=== PATIENT | female | born 2000 | race Native Hawaiian/Other Pacific Islander ===

== ENCOUNTER 2021-11-24 11:55 | Emergency (ER) | payer SELFPAY ==
[2021-11-24 12:07] VITALS: BP 145/114
[2021-11-24 12:40] LABS: BILIRUBIN,URINE NEGATIVE (NEGATIVE); GLUCOSE, URINE (UA) NEGATIVE (NEGATIVE); KETONES,URINE (UA) NEGATIVE (NEGATIVE); LEUKOCYTE ESTERASE, URINE NEGATIVE (NEGATIVE); NITRITE,URINE NEGATIVE (NEGATIVE); OCCULT BLOOD,URINE SMALL (NEGATIVE); PROTEIN,URINE NEGATIVE (NEGATIVE); UROBILINOGEN,URINE 0.2 (NORMAL) E.U./dL (NORMAL)
[2021-11-24 12:43] LABS: CLARITY,URINE CLEAR (CLEAR)
[2021-11-24 12:49] LABS: BACTERIA,URINE Few /HPF (None Seen); RBC,URINE 0-5 /HPF (0-5); SQUAMOUS EPITHELIAL CELL,UR FEW Squamous (<= Few); WBC,URINE 0-3 /HPF (0-5)
[2021-11-24] MEDS ORDERED: AZITHROMYCIN 250 MG TABLET PO STA (12:58)
[2021-11-24] MEDS ORDERED: cefTRIAXone 500 MG VIAL IM STA (12:58)
[2021-11-24] MEDS ORDERED: LIDOCAINE 1% 2 ML VIAL MC ONE (12:58)
--- NOTE | 2021-11-24 13:01 | ED Physician Documentation ---
History of Present Illness - Stated complaint Stated Complaint: FEMALE - Chief complaint Chief Complaint: General - Additonal information Additional information: 21-year-old female presents emergency department requesting evaluation for s exually transmitted infection. She has had a new sexual partner over the last month. She reports that he told her yesterday that he was having some penile and testicular pain. She is concerned that he could have chlamydia. She has no previous history of STI. She denies dyspareunia vaginal bleeding or discharge. Review of Systems Constitutional: denies: Fever, Chills Nose: reports: Reviewed and negative Throat: reports: Reviewed and negative Cardiac: reports: Reviewed and negative Respiratory: reports: Reviewed and negative GI: reports: Reviewed and negative : reports: Reviewed and negative Skin: reports: Reviewed and negative Musculoskeletal: reports: Reviewed and negative PD PAST MEDICAL HISTORY - Past Medical History Past Medical History: No - Allergies Allergies/Adverse Reactions: Allergies Allergy/AdvReac Type Severity Reaction Status Date / Time No Known Drug Allergies Allergy Verified 11/24/21 12:06 - Social History Does the pt smoke?: No Smoking Status: Never smoker - POLST Patient has POLST: No PD ED PE NORMAL - General General: Alert and oriented X 3, No acute distress - HEENT HEENT: PERRL - Cardiac Cardiac: RRR, No murmur - Respiratory Respiratory: Clear bilaterally - Abdomen Abdomen: Normal bowel sounds, Soft, Non tender, Non distended - Derm Derm: Warm and dry - Extremities Extremities: No deformity - Neuro Neuro: Alert and oriented X 3 Eye Opening: Spontaneous Motor: Obeys Commands Verbal: Oriented GCS Score: 15 Results - Vitals Vitals: Vital Signs - 24 hr 11/24/21 12:04 Temperature 36.1 C L Heart Rate 88 Respiratory 16 Rate Blood Pressure 145/114 H O2 Saturation 100 Oxygen O2 Source Room air - Labs Labs: Laboratory Tests 11/24/21 12:33 Urine Color YELLOW Urine Clarity CLEAR Urine pH 6.0 Ur Specific [place] 1.025 Urine Protein NEGATIVE Urine Glucose (UA) NEGATIVE Urine Ketones NEGATIVE Urine Occult Blood SMALL H Urine Nitrite NEGATIVE Urine Bilirubin NEGATIVE Urine Urobilinogen 0.2 (NORMAL) Ur Leukocyte Esterase NEGATIVE Urine RBC 0-5 Urine WBC 0-3 Ur Squamous Epith Cells FEW Squamous Urine Bacteria Few Ur Microscopic Review INDICATED Urine Culture Comments NOT INDICATED PD MEDICAL DECISION MAKING - ED course Complexity details: reviewed results, re-evaluated patient, considered differential, d/w patient ED course: 21-year-old female presents emergency department requesting evaluation and treatment for possible sexually transmitted infection. Her recent partner reports to her that he has penile pain and testicular pain he has yet to get evaluated or treatment. We discussed the possibility of empiric treatment versus waiting for laboratory testing and she elects empiric treatment today thus ceftriaxone azithromycin was ordered. She is encouraged to use condoms during any sexual intercourse and to wait at least 2 weeks after both she and her partner have been tested and treated. More extensive STI testing is available through [facility] or her primary care provider and this was also discussed. GC and trichomoniasis are pending via urine. Departure - Departure Disposition: 01 Home, Self Care Clinical Impression: Screen for STD (sexually transmitted disease) Condition: Stable Record reviewed to determine appropriate education?: Yes Instructions: STDs Comments: Mer you are seen today in the emergency department because you have concerned that your new partner may have a sexually transmitted infection. You have elected to be empirically treated with an antibiotic called ceftriaxone as well as an antibiotic called azithromycin. These to put together are typically adequate treatment for exposure to chlamydia and gonorrhea or active infection. We are screening your urine for these STDs. However full STD testing such as syphilis, herpes or HIV is available through [facility] or your primary care provider. It is important that your partner be both tested and treated and you both abstain from sexual intercourse for at least 2 weeks after treatment. Always use a condom. If you have any concerns that you develop a sexually transmitted infection, have pain during intercourse or vaginal discharge do not hesitate to return to the ER for a second evaluation.
[2021-11-24 21:07] LABS: CHLAMYDIA TRACHOMATIS DNA NEGATIVE (NEGATIVE); NEISSERIA GONORRHOEAE DNA NEGATIVE (NEGATIVE)
[2021-11-24 21:10] LABS: TRICHOMONAS VAGINALIS DNA POSITIVE (NEGATIVE)
== END 2021-11-24 13:36 | disposition home or self-care (01) ==
LOC: ED 11:55
DX: Z11.3 Encounter for screening for infections with a predominantly sexual mode of transmission (principal)
CPT/HCPCS: 81001; 87491; 87591; 87661; 99282; 99283; A9270; 81003; 87086

== ENCOUNTER 2024-07-10 08:38 | Observation (INO) ==
[2024-07-10] MEDS ORDERED: NALOXONE 0.4 MG/ML VIAL IVP PRN (09:08)
[2024-07-10] MEDS ORDERED: LABETALOL 5 MG/1 ML 20 ML MDV IVP PRN (09:08)
[2024-07-10] MEDS ORDERED: NIFEdipine 10 MG CAPSULE PO PRN (09:08)
[2024-07-10] MEDS ORDERED: OXYTOCIN/SODIUM CHLORIDE 500 ML IV PRN (09:08)
[2024-07-10] MEDS ORDERED: LABETALOL 20 MG/4 ML SYRINGE IVP PRN ×2 (09:08)
[2024-07-10] MEDS ORDERED: hydrALAZINE INJ 20 MG/ML VIAL IVP PRN ×2 (09:08)
[2024-07-10] MEDS ORDERED: SIMETHICONE CHEW 80 MG TABLET PO PRN (09:08)
--- NOTE | 2024-07-10 09:08 | HISTORY & PHYSICAL EXAMINATION ---
Admit History Smoking Status: Never smoker Meds/Allgy Allergies Allergies Allergy/AdvReac Type Severity Reaction Status Date / Time No Known Drug Allergies Allergy Verified 11/24/21 12:06 [facility] Social History Social History Smoking Status: Never smoker Do you vape?: No POLST Patient has POLST: No Plan for Labor Plan For Labor I expect patient to be DC'd or transferred within 96 hours.: Yes Conclusion/Plan Problem List (1) Delivery outcome of liveborn infant: Plan: Admit to L&D for observation. Will get labs for her and baby sake. Asked for consent for drug screen. Uterus is firm and below the umbilicus. Bleeding is normal. Anticipate routine care Qualifiers: Number of infants delivered: single infant Qualified Code(s): Z37.0 - Single live (2) care insufficient: Plan: Labs as above. Qualifiers: Trimester: unspecified trimester Qualified Code(s): O09.30 - Supervision of with insufficient care, unspecified trimester Lab Results 07/10/24 09:32 HPI Details: HPI: Patient is a 24-year-old G1, P1 who presented today after delivery of a at home in the bathtub. She says she did not know she was . Started having some cramping last night then was googling things difficult to take care of baby. After delivery, she did pass the placenta was brought in a bag. They cut the umbilical cord prior to come to the hospital. She has light bleeding, but steady. No dizziness, lightheadedness, weakness. All other symptoms reviewed and were negative except per HPI. Course Unknown PMH Denies pertinent history PSH Rods in her left hip OB History G1, P1 SH Denies tobacco, alcohol, drug drugs Family History No known family history Allergies No known drug allergies Medications None Physical exam: General: Alert, oriented, no apparent distress. Cardiovascular: Regular rate. Regular rhythm. Lungs: No increased work of breathing. Abdomen: Uterus firm. Below umbilicus. No guarding or rebound. Extremities: No pain on palpation. No cords palpated. Distal pulses intact. : Mild bleeding. Perineum intact, has hymenal stretching with blood clots but no active bleeding.
[2024-07-10 09:51] LABS: BASOPHILS % (AUTO) 0.1 %; HCT - HEMATOCRIT 34.5 % (37.0-47.0); HGB - HEMOGLOBIN 11.1 g/dL (12.0-16.0); LYMPHOCYTES # (AUTO) 1.1 10^3/uL (1.5-3.5); LYMPHOCYTES % (AUTO) 3.8 %; MEAN CORPUSCULAR HEMOGLOBIN 26.6 pg (27.0-31.0); MEAN CORPUSCULAR HGB CONC 32.2 g/dL (32.0-36.0); MEAN CORPUSCULAR VOLUME 82.5 fL (81.0-99.0); MEAN PLATELET VOLUME 8.8 fL (7.9-10.8); MONOCYTES # (AUTO) 1.2 10^3/uL (0.0-1.0); MONOCYTES % (AUTO) 4.2 %; NEUTROPHILS # (AUTO) 25.3 10^3/uL (1.5-6.6); NEUTROPHILS % (AUTO) 91.4 %; PLT - PLATELET COUNT 299 10^3/uL (130-450); RED BLOOD COUNT 4.18 10^6/uL (4.20-5.40); RED CELL DISTRIBUTION WIDTH 13.4 % (12.0-15.0); WHITE BLOOD COUNT 27.7 x10^3/uL (4.8-10.8)
[2024-07-10 09:55] LABS: SLIDE REVIEW? Indicated
[2024-07-10 10:39] LABS: PLATELET ESTIMATE, MANUAL NORMAL (130-450,000) (NORMAL); PLATELET MORPHOLOGY NORMAL APPEARANCE (NORMAL); RBC MORPHOLOGY (MULTIPLE) NORMAL APPEARANCE (NORMAL)
--- NOTE | 2024-07-10 11:23 | PHARMACY PROGRESS NOTE ---
Best Possible Medication History Admit Date and Time: 07/10/24 0908 Home Medications Medication Instructions Recorded Confirmed Type acetaminophen 500 mg tablet 500 mg PO Q4H PRN pain 07/10/24 07/10/24 History ibuprofen 200 mg tablet (Advil) 200 mg PO Q8H PRN pain 07/10/24 07/10/24 History Processed by: Pharmacy (Medication reconciliation completed by pharmacy laboratory technicianFederica) Medications reviewed in ED?: No Medication History completed: Yes Patient Interview: Completed Secondary Source(s): Insurance records [facility] Statement: As the person ultimately responsible for medication therapy, providers are able to order a medication from an existing home medication list in [facility] via the "Reconcile Routine" prior to Confirmation of that medication by care support representative. Such practice is discouraged except when the physician, in their clinical judgment, deems that a medical need exists for a medication without regard to previous use.
[2024-07-10] MEDS: IBUPROFEN 600 MG TABLET PO PRN (11:50)
[2024-07-10] MEDS: ACETAMINOPHEN 500 MG TABLET PO PRN (11:50)
[2024-07-10 12:34] LABS: AMPHETAMINE SCREEN,URINE POSITIVE (NEGATIVE); BARBITURATE SCREEN,UR NEGATIVE (NEGATIVE); BENZODIAZEPINES SCREEN, URINE NEGATIVE (NEGATIVE); BUPRENORPHINE SCREEN, URINE NEGATIVE (NEGATIVE); COCAINE SCREEN URINE NEGATIVE (NEGATIVE); METHADONE SCREEN, URINE NEGATIVE (NEGATIVE); METHAMPHETAMINES SCREEN, URINE POSITIVE (NEGATIVE); OPIATE SCREEN, URINE NEGATIVE (NEGATIVE); OXYCODONE SCREEN, URINE NEGATIVE (NEGATIVE); THC CANNABINOID SCREEN, URINE POSITIVE (NEGATIVE); TRICYCLIC ANTIDEPRESSANT,URINE NEGATIVE (NEGATIVE)
[2024-07-10 19:13] LABS: CHLAMYDIA TRACHOMATIS DNA NEGATIVE (NEGATIVE); NEISSERIA GONORRHOEAE DNA NEGATIVE (NEGATIVE); TRICHOMONAS VAGINALIS DNA NEGATIVE (NEGATIVE)
--- NOTE | 2024-07-10 23:21 | PROVIDER PROGRESS NOTE ---
Current Medications Current Medications Current Medications: Current Medications Generic Name Dose Route Start Last Admin Trade Name Freq PRN Reason Stop Dose Admin Acetaminophen 1,000 mg 07/10/24 09:08 07/10/24 22:14 Acetaminophen 500 Mg Tablet PO 1,000 mg Q8HR PRN Administration Mild Pain or Fever>38C(100.4F) Docusate Sodium 100 mg 07/10/24 21:00 Docusate Sodium 100 Mg Capsule PO BID [facility] Hydralazine HCl 10 mg 07/10/24 09:08 Hydralazine Inj 20 Mg/Ml Vial IVP .ONCE PRN SBP> or= 160 OR DBP> or= 110 Protocol Hydralazine HCl 5 - 10 mg 07/10/24 09:08 Hydralazine Inj 20 Mg/Ml Vial IVP Q20M PRN SBP >=160 and/or DBP >=110 Protocol Oxytocin/Sodium Chloride 500 mls @ 999 mls/hr 07/10/24 09:08 Pitocin/Sodium Chloride IV PRN PRN POST- HEMORR PREVENTION Protocol 999 MILLIUNIT/MIN Ibuprofen 600 mg 07/10/24 09:08 07/10/24 22:14 Ibuprofen 600 Mg Tablet PO 600 mg Q6HR PRN Administration Moderate Pain (Level 4-6) Labetalol HCl 20 - 80 mg 07/10/24 09:08 Labetalol 5 Mg/1 Ml 20 Ml Mdv IVP Q10M PRN SBP> or= 160 OR DBP> or= 110 Protocol Labetalol HCl 20 - 40 mg 07/10/24 09:08 Labetalol 20 Mg/4 Ml Syringe IVP Q10M PRN SBP> or= 160 OR DBP> or= 110 Protocol Labetalol HCl 20 mg 07/10/24 09:08 Labetalol 20 Mg/4 Ml Syringe IVP .ONCE PRN SBP >=160 and/or DBP >=110 Protocol Naloxone HCl 0.4 mg 07/10/24 09:08 Naloxone 0.4 Mg/Ml Vial IVP .ONCE PRN Opioid Overdose Nifedipine 10 - 20 mg 07/10/24 09:08 Nifedipine 10 Mg Capsule PO Q20M PRN SBP >=160 and/or DBP >=110 Protocol Simethicone 80 mg 07/10/24 09:08 Simethicone Chew 80 Mg Tablet PO TID PRN Gas Objective Vital Signs/Intake & Output Vital Signs: Vital Signs x48h Temp Pulse Resp BP Pulse Ox 07/10/24 23:11 36.6 C 107 H 18 107/63 98 07/10/24 19:40 36.9 C 106 H 18 113/69 98 07/10/24 16:25 36.7 C 110 H 20 121/68 99 Intake & Output: Intake & Output 07/08/24 07/09/24 07/10/24 07/11/24 05:59 05:59 05:59 05:59 Output Total Balance - Weight (kg) 200 lb Lab Results 07/10/24 09:32 Other Labs: Lab Results x24hrs 07/10/24 07/10/24 07/10/24 Range/Units 14:50 11:55 09:32 WBC 27.7 H (4.8-10.8) x10^3/uL RBC 4.18 L (4.20-5.40) 10^6/uL Hgb 11.1 L (12.0-16.0) g/dL Hct 34.5 L (37.0-47.0) % MCV 82.5 (81.0-99.0) fL MCH 26.6 L (27.0-31.0) pg MCHC 32.2 (32.0-36.0) g/dL RDW 13.4 (12.0-15.0) % Plt Count 299 (130-450) 10^3/uL MPV 8.8 (7.9-10.8) fL Neut # (Auto) 25.3 H (1.5-6.6) 10^3/uL Lymph # (Auto) 1.1 L (1.5-3.5) 10^3/uL [place] # (Auto) 1.2 H (0.0-1.0) 10^3/uL Eos # (Auto) 0.0 (0.0-0.7) 10^3/uL Baso # (Auto) 0.0 (0.0-0.1) 10^3/uL Absolute Nucleated RBC 0.00 x10^3/uL Nucleated RBC % 0.0 /100WBC Manual Slide Review Indicated Platelet Estimate NORMAL (130-450,000) (NORMAL) Platelet Morphology NORMAL APPEARANCE (NORMAL) RBC Morph Micro Appear NORMAL APPEARANCE (NORMAL) Urine Opiates Screen NEGATIVE (NEGATIVE) Ur Buprenorphine Scrn NEGATIVE (NEGATIVE) Ur Oxycodone Screen NEGATIVE (NEGATIVE) Urine Methadone Screen NEGATIVE (NEGATIVE) Ur Barbiturates Screen NEGATIVE (NEGATIVE) Ur Tricyclics Screen NEGATIVE (NEGATIVE) Ur Phencyclidine Scrn NEGATIVE (NEGATIVE) Ur Amphetamine Screen POSITIVE H (NEGATIVE) U Methamphetamines Scrn POSITIVE H (NEGATIVE) U Benzodiazepines Scrn NEGATIVE (NEGATIVE) Urine Cocaine Screen NEGATIVE (NEGATIVE) U Cannabinoids Screen POSITIVE H (NEGATIVE) Ur Drug Screen Comment CUTOFF CONC BELOW: Chlam trachomat DNA PCR NEGATIVE (NEGATIVE) N.gonorrhoeae DNA (PCR) NEGATIVE (NEGATIVE) Rubella IgG Antibody <10.0 IU/mL T. vaginalis (PCR) NEGATIVE (NEGATIVE) Blood Type B POSITIVE Blood Type Recheck B POSITIVE Antibody Screen NEGATIVE Assessment/Plan Problem List (1) Delivery outcome of liveborn infant: Impression: Bonding well with baby. Has supportive family and friends. Will check on her in the morning. Qualifiers: Number of infants delivered: single infant Qualified Code(s): Z37.0 - Single live (2) care insufficient: Qualifiers: Trimester: unspecified trimester Qualified Code(s): O09.30 - Supervision of with insufficient care, unspecified trimester (3) Leukocytosis: Impression: Patient with elevated white count and increased neutrophils. UDS positive for methamphetamines and cannabinoids. Vital signs overall normal. Had mild tachypnea at 1 point, but normalized now. Mild tachycardia, but normal for and state. Blood pressure normal. No signs of fever or infection. Baby similarly doing well. Will plan on repeating CBC in the morning
[2024-07-11 03:12] LABS: RPR Non Reactive (Non Reactive)
[2024-07-11 06:27] LABS: BASOPHILS % (AUTO) 0.3 %; EOSINOPHILS % (AUTO) 1.5 %; HCT - HEMATOCRIT 33.9 % (37.0-47.0); HGB - HEMOGLOBIN 10.7 g/dL (12.0-16.0); LYMPHOCYTES % (AUTO) 14.2 %; MEAN CORPUSCULAR HEMOGLOBIN 26.5 pg (27.0-31.0); MEAN CORPUSCULAR HGB CONC 31.6 g/dL (32.0-36.0); MEAN CORPUSCULAR VOLUME 83.9 fL (81.0-99.0); MEAN PLATELET VOLUME 9.1 fL (7.9-10.8); MONOCYTES % (AUTO) 6.4 %; NEUTROPHILS % (AUTO) 76.9 %; PLT - PLATELET COUNT 301 10^3/uL (130-450); RED BLOOD COUNT 4.04 10^6/uL (4.20-5.40); RED CELL DISTRIBUTION WIDTH 13.5 % (12.0-15.0); WHITE BLOOD COUNT 22.5 x10^3/uL (4.8-10.8)
[2024-07-11 06:33] LABS: ABNORMAL LYMPHS % (MANUAL) 0 %
[2024-07-11 06:48] LABS: BAND NEUTROPHILS % (MANUAL) 2 %; DIFFERENTIAL COMMENT MANUAL DIFFERENTIAL; LYMPHOCYTES # (MANUAL) 1.1 10^3/uL (1.5-3.5); LYMPHOCYTES % (MANUAL) 5 %; MONOCYTES # (MANUAL) 0.5 10^3/uL (0.0-1.0); NEUTROPHILS # (MANUAL) 20.9 10^3/uL (1.5-6.6); PLATELET ESTIMATE, MANUAL NORMAL (130-450,000) (NORMAL); PLATELET MORPHOLOGY NORMAL APPEARANCE (NORMAL); RBC MORPHOLOGY (MULTIPLE) NORMAL APPEARANCE (NORMAL); WBC MORPHOLOGY (MULTIPLE) NORMAL APPEARANCE (NORMAL)
[2024-07-11 07:11] LABS: HBsAG SCREEN Negative (Negative); HIV SCREEN 4TH GENERATION Non Reactive (Non Reactive)
--- NOTE | 2024-07-11 17:42 | PROVIDER PROGRESS NOTE ---
Subjective Subjective Subjective: She is feeling well this afternoon, no concerns. Bleeding is appropriate. Pain is well controlled. She is currently bottle feeding . Ambulating and urinating without difficulty. Tolerating regular diet. Reports she is all set at home with everything that she needs for the baby. Current Medications Current Medications Current Medications: Current Medications Generic Name Dose Route Start Last Admin Trade Name Freq PRN Reason Stop Dose Admin Acetaminophen 1,000 mg 07/10/24 09:08 07/10/24 22:14 Acetaminophen 500 Mg Tablet PO 1,000 mg Q8HR PRN Administration Mild Pain or Fever>38C(100.4F) Docusate Sodium 100 mg 07/10/24 21:00 Docusate Sodium 100 Mg Capsule PO BID [facility] Hydralazine HCl 10 mg 07/10/24 09:08 Hydralazine Inj 20 Mg/Ml Vial IVP .ONCE PRN SBP> or= 160 OR DBP> or= 110 Protocol Hydralazine HCl 5 - 10 mg 07/10/24 09:08 Hydralazine Inj 20 Mg/Ml Vial IVP Q20M PRN SBP >=160 and/or DBP >=110 Protocol Oxytocin/Sodium Chloride 500 mls @ 999 mls/hr 07/10/24 09:08 Pitocin/Sodium Chloride IV PRN PRN POST- HEMORR PREVENTION Protocol 999 MILLIUNIT/MIN Ibuprofen 600 mg 07/10/24 09:08 07/10/24 22:14 Ibuprofen 600 Mg Tablet PO 600 mg Q6HR PRN Administration Moderate Pain (Level 4-6) Labetalol HCl 20 - 80 mg 07/10/24 09:08 Labetalol 5 Mg/1 Ml 20 Ml Mdv IVP Q10M PRN SBP> or= 160 OR DBP> or= 110 Protocol Labetalol HCl 20 - 40 mg 07/10/24 09:08 Labetalol 20 Mg/4 Ml Syringe IVP Q10M PRN SBP> or= 160 OR DBP> or= 110 Protocol Labetalol HCl 20 mg 07/10/24 09:08 Labetalol 20 Mg/4 Ml Syringe IVP .ONCE PRN SBP >=160 and/or DBP >=110 Protocol Naloxone HCl 0.4 mg 07/10/24 09:08 Naloxone 0.4 Mg/Ml Vial IVP .ONCE PRN Opioid Overdose Nifedipine 10 - 20 mg 07/10/24 09:08 Nifedipine 10 Mg Capsule PO Q20M PRN SBP >=160 and/or DBP >=110 Protocol Simethicone 80 mg 07/10/24 09:08 Simethicone Chew 80 Mg Tablet PO TID PRN Gas Objective Vital Signs/Intake & Output Reviewed Vital Signs: Yes Intake & Output: Intake & Output 07/09/24 07/10/24 07/11/24 07/12/24 05:59 05:59 05:59 05:59 Output Total Balance - Weight (kg) 200 lb Objective Comments/Other: Gen: NAD, ambulatory around room Chest: non labored respirations Abd: non tender Ext: no LE edema Lab Results 07/11/24 06:16 Other Labs: Lab Results x24hrs 07/11/24 07/10/24 07/10/24 Range/Units 06:16 11:55 11:41 WBC 22.5 H (4.8-10.8) x10^3/uL RBC 4.04 L (4.20-5.40) 10^6/uL Hgb 10.7 L (12.0-16.0) g/dL Hct 33.9 L (37.0-47.0) % MCV 83.9 (81.0-99.0) fL MCH 26.5 L (27.0-31.0) pg MCHC 31.6 L (32.0-36.0) g/dL RDW 13.5 (12.0-15.0) % Plt Count 301 (130-450) 10^3/uL MPV 9.1 (7.9-10.8) fL Neut # (Auto) Not Reportable Lymph # (Auto) Not Reportable [place] # (Auto) Not Reportable Eos # (Auto) Not Reportable Baso # (Auto) Not Reportable Absolute Nucleated RBC Not Reportable Total Counted 100 Band Neuts % (Manual) 2 (0 - 10) % Abnorm Lymph % (Manual) 0 % Nucleated RBC % Not Reportable Neutrophils # (Manual) 20.9 H (1.5-6.6) 10^3/uL Lymphocytes # (Manual) 1.1 L (1.5-3.5) 10^3/uL Monocytes # (Manual) 0.5 (0.0-1.0) 10^3/uL Eosinophils # (Manual) 0.0 (0-0.7) 10^3/uL Basophils # (Manual) 0.0 (0-0.1) 10^3/uL Differential Comment MANUAL DIFFERENTIAL WBC Morphology NORMAL APPEARANCE (NORMAL) Platelet Estimate NORMAL (130-450,000) (NORMAL) Platelet Morphology NORMAL APPEARANCE (NORMAL) RBC Morph Micro Appear NORMAL APPEARANCE (NORMAL) RPR (Non Reactive) Chlam trachomat DNA PCR NEGATIVE (NEGATIVE) Hep Bs Antigen (Negative) Hepatitis C Antibody 2 (Non Reactive) HIV 1&2 Ab/P24 Ag 4thGn (Non Reactive) N.gonorrhoeae DNA (PCR) NEGATIVE (NEGATIVE) Group B Strep (PCR) POSITIVE A (NEGATIVE) T. vaginalis (PCR) NEGATIVE (NEGATIVE) VZV IgG Antibody (Non Reactive) 07/10/24 Range/Units 09:32 WBC (4.8-10.8) x10^3/uL RBC (4.20-5.40) 10^6/uL Hgb (12.0-16.0) g/dL Hct (37.0-47.0) % MCV (81.0-99.0) fL MCH (27.0-31.0) pg MCHC (32.0-36.0) g/dL RDW (12.0-15.0) % Plt Count (130-450) 10^3/uL MPV (7.9-10.8) fL Neut # (Auto) Lymph # (Auto) [place] # (Auto) Eos # (Auto) Baso # (Auto) Absolute Nucleated RBC Total Counted Band Neuts % (Manual) (0 - 10) % Abnorm Lymph % (Manual) % Nucleated RBC % Neutrophils # (Manual) (1.5-6.6) 10^3/uL Lymphocytes # (Manual) (1.5-3.5) 10^3/uL Monocytes # (Manual) (0.0-1.0) 10^3/uL Eosinophils # (Manual) (0-0.7) 10^3/uL Basophils # (Manual) (0-0.1) 10^3/uL Differential Comment WBC Morphology (NORMAL) Platelet Estimate (NORMAL) Platelet Morphology (NORMAL) RBC Morph Micro Appear (NORMAL) RPR Non Reactive (Non Reactive) Chlam trachomat DNA PCR (NEGATIVE) Hep Bs Antigen Negative (Negative) Hepatitis C Antibody 2 Non Reactive (Non Reactive) HIV 1&2 Ab/P24 Ag 4thGn Non Reactive (Non Reactive) N.gonorrhoeae DNA (PCR) (NEGATIVE) Group B Strep (PCR) (NEGATIVE) T. vaginalis (PCR) (NEGATIVE) VZV IgG Antibody Reactive (Non Reactive) Assessment/Plan Problem List (1) Delivery outcome of liveborn : Impression: Continue routine care. She is s/p SW and CPS consults with plan to discharge home tomorrow. Elevated WBC on admission, however, afebrile, asymptomatic, and downtrending. Will continue to monitor. Qualifiers: Number of infants delivered: single infant Qualified Code(s): Z37.0 - Single live (2) care insufficient: Qualifiers: Trimester: unspecified trimester Qualified Code(s): O09.30 - Supervision of with insufficient care, unspecified trimester (3) Leukocytosis: (4) Positive urine drug screen:
[2024-07-11] MEDS: DOCUSATE SODIUM 100 MG CAPSULE PO SCH (17:44)
[2024-07-12 08:13] VITALS: O2SAT 100
[2024-07-12] MEDS: MEASLES,MUMPS & RUBELLA VACC 0.5 ML VIAL SUBQ ONE (10:06)
--- NOTE | 2024-07-12 11:56 | Discharge Summary ---
Discharge Summary Admit Date: 07/10/24 Discharge Date: 07/12/24 Discharging Provider: Ad Jc< HOSPITAL COURSE Hospital Course: Admission Diagnosis: - Unknown gestionatal age - Insufficient care - Delivery of infant and placenta at home - Drug abuse Discharge Diagnosis: - Same - GBS + - Rubella non immune - Varicella immune - Rh+ Procedures: none Hospital Course: Alina is a 24 yo who presented to the hospital after home delivery of infant and placenta. Reports not knowing she was and no care. UDS + on admission (cannibis, opiates, amphetamines). She was evaluated by social work and CPS. course otherwise uncomplicated. Condition on Discharge: SUBJECTIVE: day 2 She feels well and really wants to discharge home [place], ready to be in the comfort of her own home. Denies pain, [place] vision changes, F/C, SOB. The baby is doing well at bedside. Baby is feeding via bottle feeding. She is ambulating well, tolerating normal diet, urinating without difficulty. Lochia is reported as light. She declines MMR vaccine in the hospital, says she will get at community pharmacy. OBJECTIVE: Vital signs reviewed, mild range BP noted this AM and slight tachycardia. Asymptomatic. GENERAL: NAD CHEST: non labored respirations ABD: soft, non tender, fundus firm EXT: no lower extremity edema; No evidence of DVT LAB & IMAGING STUDIES: See below PLAN: Plan for discharge home with follow up in clinic as scheduled on 07/17. Reviewed home care instructions and medications. Patient counseled regarding signs and symptoms of infection, excessive bleeding, vaginal rest and activity restrictions. We also discussed preeclamsia precautions in detail. Contraceptive plans to be formalized at visit, currently planning for Mirena IUD. Discussed that additional support is available in our clinic if she decides to breast feed. ALLERGIES Allergies Allergy/AdvReac Type Severity Reaction Status Date / Time No Known Drug Allergies Allergy Verified 11/24/21 12:06 MEDICATIONS Ambulatory Orders Medication Instructions Recorded Confirmed acetaminophen 500 mg tablet 500 mg PO Q4H PRN pain 07/10/24 07/10/24 ibuprofen 200 mg tablet (Advil) 200 mg PO Q8H PRN pain 07/10/24 07/10/24 vitamin with calcium 1 tab PO DAILY #90 tabs 07/12/24 no.72-iron 27 mg-folic acid 1 mg tablet ( Vitamins Plus Low Iron) LABS 07/11/24 06:16 FOLLOW UP Follow Up: In clinic on 07/17 which is scheduled. TIME SPENT Time Spent in Discharge (Minutes): 25 Discharge Plan Discharge Patient Disposition: Home, Self Care Prescriptions: New Vitamin Plus Low Iron 27 mg iron- 1 mg tablet 1 tab PO DAILY Qty: 90 3RF Continued acetaminophen 500 mg tablet 500 mg PO Q4H PRN (Reason: pain) ibuprofen [Advil] 200 mg tablet 200 mg PO Q8H PRN (Reason: pain) Print Language: Yakut Patient Instructions: Vaginal After, Depression , Change Expect Parents
== END 2024-07-12 12:55 | disposition home or self-care (01) ==
LOC: FBP 08:38 → WFO 08:38 → FBP 08:45
PROVIDERS: ADMIT Obstetrics & Gynecology; ATTEND Obstetrics & Gynecology
DX: O99.325 Drug use complicating the puerperium; O99.825 Streptococcus B carrier state complicating the puerperium; D72.829 Elevated white blood cell count, unspecified; Z39.0 Encounter for care and examination of mother immediately after delivery; F19.10 Other psychoactive substance abuse, uncomplicated; R00.0 Tachycardia, unspecified; O90.89 Other complications of the puerperium, not elsewhere classified